=== PATIENT | female | born 1930 | race Caucasian/White ===

== ENCOUNTER 2016-10-13 17:43 | Emergency (ER) | payer OTHER ==
[~2016-10-13] VITALS: Ht 152.4 cm; Wt 66.9 kg
[2016-10-13 19:57] VITALS: BP 142/88
== END 2016-10-13 19:58 | disposition home or self-care (01) ==
LOC: EME 17:43
DX: H10.9 Unspecified conjunctivitis (principal)
CPT/HCPCS: 99281; 99284